=== PATIENT | male | born 1965 | race Caucasian/White ===

== ENCOUNTER 2017-12-27 18:11 | Emergency (ER) | payer MEDICARE, MEDICAID ==
[~2017-12-27] VITALS: Ht 180.3 cm; Wt 77.2 kg
[~2017-12-27 18:11] MED LIST: ASPI81TA PO; CLIN150C8 PO; CLOP75TA33 PO; FLUO40CA11 PO; FOLI-43 PO; FURO40TA4 PO; GUAI600T45 PO; IPRA3AMP IH; METO25TA6 PO; MORP60TA32 PO; MULT-785 PO; POTA8CAP9 PO; QUET25TA PO; REM15T PO; SIMV40TA4 PO; THI100T PO
[2017-12-27 19:52] LABS: HEMATOCRIT 35.9 % (42.0-52.0); HEMOGLOBIN 12.3 g/dl (14.0-17.9); MEAN CORPUSCULAR HEMOGLOBIN 32.5 PG (27.0-31.0); MEAN CORPUSCULAR HGB CONC 34.3 % (33.0-36.5); MEAN CORPUSCULAR VOLUME 94.9 FL (78-98); MEAN PLATELET VOLUME 7.3 FL (7.4-10.4); PLATELET COUNT 136 X10'3 (140-440); RED BLOOD COUNT 3.79 X10'6 (4.70-6.10); RED CELL DISTRIBUTION WIDTH 16.7 % (11.5-14.5)
[2017-12-27 20:03] LABS: ALANINE AMINOTRANSFERASE 76 U/L (12-78); ALBUMIN 4.2 G/DL (3.4-5.0); ALBUMIN/GLOBULIN RATIO 1.1 (1.1-1.5); ALKALINE PHOSPHATASE 125 IU/L (46-116); ANION GAP 9 (8-16); ASPARTATE AMINO TRANSFERASE 125 U/L (10-37); BILIRUBIN,TOTAL 0.3 MG/DL (0.1-1.0); BLOOD UREA NITROGEN 4 MG/DL (7-18); BUN/CREATININE RATIO 4.9 (5.4-32.0); CHLORIDE 102 MMOL/L (99-107); CREATININE 0.82 MG/DL (0.60-1.10); GLUCOSE 97 MG/DL (70-104); POTASSIUM 4.2 MMOL/L (3.5-5.1); SODIUM 140 MMOL/L (135-145); TOTAL CARBON DIOXIDE 29.5 MMOL/L (24-32); TOTAL PROTEIN 8.1 G/DL (6.4-8.2); eGFR > 90 ML/MIN
[2017-12-27 20:06] LABS: TOTAL CELLS COUNTED 100
[2017-12-27 20:07] LABS: PLATELET ESTIMATE DECREASED
[2017-12-27 20:51] VITALS: BP 114/71
== END 2017-12-27 20:54 | disposition home or self-care (01) ==
LOC: ER 18:11
DX: R60.0 Localized edema (principal); F12.90 Cannabis use, unspecified, uncomplicated; I25.10 Atherosclerotic heart disease of native coronary artery without angina pectoris; I25.2 Old myocardial infarction; E78.00 Pure hypercholesterolemia, unspecified; J44.9 Chronic obstructive pulmonary disease, unspecified; G89.29 Other chronic pain; Z88.0 Allergy status to penicillin; Z79.82 Long term (current) use of aspirin; Z79.899 Other long term (current) drug therapy; Z56.0 Unemployment, unspecified
CPT/HCPCS: 36415; 80053; 83880; 85025; 99283; 99284

== ENCOUNTER 2018-01-02 13:21 | Inpatient (IN) | payer MEDICARE, MEDICAID ==
[~2018-01-02] VITALS: Ht 180.3 cm; Wt 84.1 kg
[2018-01-02] MEDS ORDERED: ondansetron/PF 4mg/2ml inj IV ONE (13:40)
[2018-01-02] MEDS ORDERED: TETanus/Pertussis (Acell)/Diphther VAC/PF (Tdap-Adult) 0.5ml syringe IM ONE (13:40)
[2018-01-02] MEDS ORDERED: normal saline 1000ML IV soln IVB ONE (13:40)
[2018-01-02] MEDS: magnesium/D5W IVPB 100 ML IV SCH ×2 (13:40→14:40)
[2018-01-02] MEDS ORDERED: phenobarbital inj 260 MG in normal saline 100ml IV soln 99 ML IV STA ×2 (13:40→16:25)
[2018-01-02] MEDS ORDERED: thiamine inj. 100 MG in normal saline 100ml IV soln 99 ML IV ONE (13:40)
[2018-01-02] MEDS ORDERED: iohexol 300mg/ml 100ml inj. ONE (14:01)
[2018-01-02 14:05] LABS: BASOPHILS # (AUTO) 0.1 X10'3 (0-0.2); BASOPHILS % (AUTO) 0.5 % (0-1); EOSINOPHILS # (AUTO) 0.1 X10'3 (0-0.9); EOSINOPHILS % (AUTO) 0.5 % (0-6); HEMATOCRIT 34.9 % (42.0-52.0); LYMPHOCYTES # (AUTO) 1.5 X10'3 (1.1-4.8); LYMPHOCYTES % (AUTO) 11.5 % (21-51); MEAN CORPUSCULAR HEMOGLOBIN 32.3 PG (27.0-31.0); MEAN CORPUSCULAR HGB CONC 34.3 % (33.0-36.5); MEAN CORPUSCULAR VOLUME 94.1 FL (78-98); MEAN PLATELET VOLUME 9.4 FL (7.4-10.4); MONOCYTES # (AUTO) 1.3 X10'3 (0-0.9); MONOCYTES % (AUTO) 9.8 % (2-12); NEUTROPHILS % (AUTO) 77.7 % (42-75); PLATELET COUNT 122 X10'3 (140-440); RED BLOOD COUNT 3.71 X10'6 (4.70-6.10); WHITE BLOOD COUNT 12.9 X10'3 (4.5-11.0)
[2018-01-02 14:19] LABS: ALANINE AMINOTRANSFERASE 84 U/L (12-78); ALKALINE PHOSPHATASE 103 IU/L (46-116); ANION GAP 14 (8-16); ASPARTATE AMINO TRANSFERASE 217 U/L (10-37); BILIRUBIN,TOTAL 1.5 MG/DL (0.1-1.0); BLOOD UREA NITROGEN 33 MG/DL (7-18); BUN/CREATININE RATIO 21.2 (5.4-32.0); CALCIUM 9.6 MG/DL (8.5-10.1); CHLORIDE 92 MMOL/L (99-107); CREATININE 1.56 MG/DL (0.60-1.10); ETHANOL < 0.010 GM/DL (0.0-0.010); GLUCOSE 94 MG/DL (70-104); MAGNESIUM 1.7 MG/DL (1.5-2.4); SODIUM 135 MMOL/L (135-145); TOTAL CARBON DIOXIDE 29.1 MMOL/L (24-32); TOTAL PROTEIN 7.9 G/DL (6.4-8.2); eGFR 47 ML/MIN
[2018-01-02 14:25] LABS: POTASSIUM 2.3 MMOL/L (3.5-5.1)
[2018-01-02] MEDS ORDERED: potassium Cl 20 mEq SR tablet PO ONE (15:00)
[2018-01-02] MEDS ORDERED: FURO40TA4 PO (15:00)
[2018-01-02] MEDS ORDERED: IBUP-1985 PO (15:00)
[2018-01-02 15:15] LABS: CKMB RELATIVE INDEX 0.3 RATIO (0-2.5); CREATINE KINASE 5253 U/L (39-308)
[2018-01-02] MEDS ORDERED: thiamine 100mg/ml 2ml inj. IV ONE ×2 (15:20→16:20)
[2018-01-02] MEDS: potassium 10mEq/100ml NS w/LIDOcaine (10mg/bag) IV SCH ×2 (15:37→20:06)
[2018-01-02] MEDS ORDERED: diphenhydrAMINE 50 mg/ml inj IV PRN (16:20)
[2018-01-02] MEDS ORDERED: magnesium hydroxide 30ml (MOM) UD suspension PO PRN (16:20)
[2018-01-02] MEDS ORDERED: potassium Cl 40MEQ/NS 500ml 500 ML IV PRN ×2 (16:20)
[2018-01-02] MEDS ORDERED: magnesium Cl slow-release 64mg tablet PO PRN (16:20)
[2018-01-02] MEDS ORDERED: mag hydrox/Alum hydrox/simeth 30ml oral suspension PO PRN (16:20)
[2018-01-02] MEDS ORDERED: acetaminophen 325mg tablet PO PRN ×2 (16:20)
[2018-01-02] MEDS ORDERED: magnesium 4gm in 100ml NS 100 ML IV PRN (16:20)
[2018-01-02] MEDS ORDERED: HYDROcodone/acetaminophen 5mg/325mg tablet PO PRN (16:20)
[2018-01-02] MEDS ORDERED: dextrose 50%-water 50ml dispensing syringe IV PRN (16:20)
[2018-01-02] MEDS ORDERED: ondansetron/PF 4mg/2ml inj IV PRN (16:20)
[2018-01-02] MEDS ORDERED: acetaminophen 650mg rectal suppository RC PRN (16:20)
[2018-01-02] MEDS ORDERED: magnesium/D5W IVPB 50 ML IV PRN (16:20)
[2018-01-02] MEDS ORDERED: haloperidol lactate 5mg/ml inj IM PRN (16:20)
[2018-01-02] MEDS: K and/or MAG REPLACEMENT MC SCH (16:20)
[2018-01-02] MEDS ORDERED: LORazepam 2 mg/ml vial IV PRN (16:20)
[2018-01-02] MEDS ORDERED: morphine 4 MG/ML inj SYRINge IV PRN ×2 (16:20)
[2018-01-02 16:57] LABS: HEMOGLOBIN A1C 5.3 % (4.5-6.2)
[2018-01-02 17:19] LABS: CLARITY,URINE CLEAR (Clear); COLOR,URINE YELLOW (Yellow); GLUCOSE, URINE NEGATIVE (Neg); KETONES,URINE NEGATIVE (Neg); LEUKOCYTE ESTERASE ,URINE NEGATIVE (Neg); NITRITES, URINE NEGATIVE (Neg); OCCULT BLOOD,URINE MODERATE (Neg); PH,URINE 5.5 (4.8-8.0); PROTEIN,URINE NEGATIVE (Neg); UROBILINOGEN,URINE 0.2 E.U/dL (0.2-1.0)
[2018-01-02 17:35] LABS: UA COLLECTION TYPE URINAL
[2018-01-02 17:36] LABS: BACTERIA,URINE NONE SEEN /HPF (Neg); HYALINE CASTS 0-3 /LPF (NEGATIVE); MUCUS STRANDS FEW /LPF (Neg); RBC,URINE 0-2 /HPF (0-2); SQUAMOUS EPITHELIAL CELL,UR FEW /LPF (FEW); WBC,URINE 0-4 /HPF (0-4)
[2018-01-02 18:00] VITALS: BP 112/70
[2018-01-02 18:11] LABS: HIV ANTIBODY 1&2 RAPID NON-REACTIVE (Neg)
[2018-01-02 18:21] LABS: URINE AMPHETAMINE SCREEN NEGATIVE (Neg); URINE BARBITUATE SCREEN POSITIVE (Neg); URINE BENZODIAZEPINES SCREEN NEGATIVE (Neg); URINE CANNABINOID SCREEN POSITIVE (Neg); URINE COCAINE SCREEN NEGATIVE (Neg); URINE METHADONE SCREEN NEGATIVE (Neg); URINE OPIATE SCREEN NEGATIVE (Neg); URINE PHENCYCLIDINE SCREEN NEGATIVE (Neg)
[2018-01-02] MEDS ORDERED: potassium 10mEq/100ml NS w/LIDOcaine (10mg/bag) IV SCH (19:10)
[2018-01-02] MEDS: dextrose 5%-lactated ringers 1,000 ML IV SCH (20:06)
[2018-01-02] MEDS: mirtazapine 15mg tablet PO SCH (20:42)
[2018-01-02] MEDS: metoprolol tartrate 25mg tablet PO SCH (20:42)
[2018-01-02] MEDS: LORazepam 2 mg/ml vial IV PRN (21:52)
[2018-01-02 22:00] VITALS: BP 98/66
[2018-01-03] MEDS: dextrose 5%-lactated ringers 1,000 ML IV SCH ×3 (02:47→13:00)
[2018-01-03 03:08] VITALS: BP 108/72
[2018-01-03] MEDS: LORazepam 2 mg/ml vial IV PRN ×2 (03:08→05:39)
[2018-01-03 06:00] VITALS: BP 110/72
[2018-01-03 06:55] LABS: CKMB RELATIVE INDEX 0.2 RATIO (0-2.5)
[2018-01-03] MEDS: K and/or MAG REPLACEMENT MC SCH (08:00)
[2018-01-03 09:09] LABS: INR 0.9 INR; PARTIAL THROMBOPLASTIN TIME 24 SECONDS (22-32); PROTHROMBIN TIME 9.8 SECONDS (9.0-12.0)
[2018-01-03 09:13] LABS: ALANINE AMINOTRANSFERASE 78 U/L (12-78); ALBUMIN 3.2 G/DL (3.4-5.0); ALBUMIN/GLOBULIN RATIO 0.9 (1.1-1.5); ALKALINE PHOSPHATASE 84 IU/L (46-116); ANION GAP 8 (8-16); ASPARTATE AMINO TRANSFERASE 188 U/L (10-37); BILIRUBIN,TOTAL 1.1 MG/DL (0.1-1.0); BLOOD UREA NITROGEN 17 MG/DL (7-18); CALCIUM 8.5 MG/DL (8.5-10.1); CHLORIDE 102 MMOL/L (99-107); CREATININE 0.85 MG/DL (0.60-1.10); GLUCOSE 96 MG/DL (70-104); SODIUM 140 MMOL/L (135-145); TOTAL CARBON DIOXIDE 29.7 MMOL/L (24-32); TOTAL PROTEIN 6.6 G/DL (6.4-8.2); eGFR > 90 ML/MIN
[2018-01-03 09:20] LABS: POTASSIUM 2.8 MMOL/L (3.5-5.1)
[2018-01-03] MEDS: potassium Cl 20 mEq SR tablet PO PRN ×3 (09:26→20:25)
[2018-01-03] MEDS: metoprolol tartrate 25mg tablet PO SCH ×2 (09:26→20:02)
[2018-01-03] MEDS: folic acid inj. 2 MG, thiamine inj. 100 MG, MVI, adult No.4 with vit. K 10 ML in dextro... IV SCH ×4 (09:27)
[2018-01-03 09:35] LABS: BASOPHILS % (AUTO) 0.1 % (0-1); EOSINOPHILS # (AUTO) 0.2 X10'3 (0-0.9); EOSINOPHILS % (AUTO) 2.5 % (0-6); HEMATOCRIT 31.4 % (42.0-52.0); HEMOGLOBIN 10.7 g/dl (14.0-17.9); LYMPHOCYTES # (AUTO) 1.2 X10'3 (1.1-4.8); LYMPHOCYTES % (AUTO) 14.2 % (21-51); MEAN CORPUSCULAR HEMOGLOBIN 32.4 PG (27.0-31.0); MEAN CORPUSCULAR HGB CONC 34.2 % (33.0-36.5); MEAN CORPUSCULAR VOLUME 94.6 FL (78-98); MEAN PLATELET VOLUME 8.9 FL (7.4-10.4); MONOCYTES # (AUTO) 0.9 X10'3 (0-0.9); MONOCYTES % (AUTO) 10.2 % (2-12); NEUTROPHILS # (AUTO) 6.1 X10'3 (1.8-7.7); PLATELET COUNT 129 X10'3 (140-440); RED BLOOD COUNT 3.31 X10'6 (4.70-6.10); RED CELL DISTRIBUTION WIDTH 16.2 % (11.5-14.5); WHITE BLOOD COUNT 8.4 X10'3 (4.5-11.0)
[2018-01-03 10:00] VITALS: BP 116/66
[2018-01-03] MEDS: enoxaparin 40mg/0.4ml syringe SUBCUT SCH (11:27)
[2018-01-03 18:00] VITALS: BP 101/69
[2018-01-03] MEDS: mirtazapine 15mg tablet PO SCH (20:02)
[2018-01-03] MEDS: potassium 20mEq/D5LR 1,000 ML IV SCH (20:15)
[2018-01-03 22:00] VITALS: BP 107/75
[2018-01-04] MEDS: HYDROcodone/acetaminophen 10/325mg tab PO PRN ×2 (00:37→18:28)
[2018-01-04] MEDS: potassium 20mEq/D5LR 1,000 ML IV SCH ×4 (03:15→22:10)
[2018-01-04 06:00] VITALS: BP 114/83
[2018-01-04 06:30] LABS: BASOPHILS % (AUTO) 0.6 % (0-1); EOSINOPHILS # (AUTO) 0.2 X10'3 (0-0.9); EOSINOPHILS % (AUTO) 3.3 % (0-6); HEMATOCRIT 26.9 % (42.0-52.0); HEMOGLOBIN 9.2 g/dl (14.0-17.9); LYMPHOCYTES # (AUTO) 1.5 X10'3 (1.1-4.8); LYMPHOCYTES % (AUTO) 24.8 % (21-51); MEAN CORPUSCULAR HEMOGLOBIN 31.9 PG (27.0-31.0); MEAN CORPUSCULAR HGB CONC 34.2 % (33.0-36.5); MEAN CORPUSCULAR VOLUME 93.4 FL (78-98); MONOCYTES % (AUTO) 16.9 % (2-12); NEUTROPHILS # (AUTO) 3.3 X10'3 (1.8-7.7); NEUTROPHILS % (AUTO) 54.4 % (42-75); PLATELET COUNT 148 X10'3 (140-440); RED BLOOD COUNT 2.88 X10'6 (4.70-6.10); RED CELL DISTRIBUTION WIDTH 16.3 % (11.5-14.5)
[2018-01-04 06:58] LABS: CHLORIDE 104 MMOL/L (99-107); GLUCOSE 96 MG/DL (70-104); POTASSIUM 3.3 MMOL/L (3.5-5.1); SODIUM 138 MMOL/L (135-145); TOTAL CARBON DIOXIDE 27.1 MMOL/L (24-32)
[2018-01-04 06:59] LABS: ALANINE AMINOTRANSFERASE 76 U/L (12-78); ALBUMIN 2.9 G/DL (3.4-5.0); ALKALINE PHOSPHATASE 76 IU/L (46-116); ANION GAP 7 (8-16); ASPARTATE AMINO TRANSFERASE 157 U/L (10-37); BILIRUBIN,TOTAL 0.7 MG/DL (0.1-1.0); BLOOD UREA NITROGEN 7 MG/DL (7-18); BUN/CREATININE RATIO 10.6 (5.4-32.0); CALCIUM 8.4 MG/DL (8.5-10.1); CREATININE 0.66 MG/DL (0.60-1.10); TOTAL PROTEIN 5.9 G/DL (6.4-8.2); eGFR > 90 ML/MIN
[2018-01-04 07:00] LABS: CREATINE KINASE 1990 U/L (39-308)
[2018-01-04] MEDS: K and/or MAG REPLACEMENT MC SCH (08:00)
[2018-01-04] MEDS: metoprolol tartrate 25mg tablet PO SCH ×2 (08:42→20:05)
[2018-01-04] MEDS: enoxaparin 40mg/0.4ml syringe SUBCUT SCH (08:43)
[2018-01-04] MEDS: potassium Cl 20 mEq SR tablet PO PRN ×2 (08:45→18:28)
[2018-01-04] MEDS: folic acid inj. 2 MG, thiamine inj. 100 MG, MVI, adult No.4 with vit. K 10 ML in dextro... IV SCH ×4 (08:47)
[2018-01-04 10:00] VITALS: BP 131/84
[2018-01-04 12:07] LABS: OCCULT BLOOD STOOL NEGATIVE (Neg)
[2018-01-04 13:23] LABS: HBSAG SCREEN Negative (Negative); HEP A AB, IGM Negative (Negative); HEP B CORE AB, IGM Negative (Negative); HEPATITIS C ANTIBODY <0.1 s/co ratio (0.0-0.9)
[2018-01-04 18:00] VITALS: BP 123/89
[2018-01-04] MEDS: mirtazapine 15mg tablet PO SCH (20:05)
[2018-01-04 22:00] VITALS: BP 108/76
[2018-01-05] MEDS: potassium Cl 20 mEq SR tablet PO PRN (00:38)
[2018-01-05 05:51] LABS: BASOPHILS # (AUTO) 0.1 X10'3 (0-0.2); EOSINOPHILS # (AUTO) 0.2 X10'3 (0-0.9); EOSINOPHILS % (AUTO) 2.9 % (0-6); HEMOGLOBIN 9.6 g/dl (14.0-17.9); LYMPHOCYTES # (AUTO) 1.7 X10'3 (1.1-4.8); LYMPHOCYTES % (AUTO) 22.4 % (21-51); MEAN CORPUSCULAR HEMOGLOBIN 32.5 PG (27.0-31.0); MEAN CORPUSCULAR HGB CONC 34.3 % (33.0-36.5); MEAN CORPUSCULAR VOLUME 94.7 FL (78-98); MEAN PLATELET VOLUME 8.4 FL (7.4-10.4); MONOCYTES # (AUTO) 1.3 X10'3 (0-0.9); MONOCYTES % (AUTO) 18.1 % (2-12); NEUTROPHILS # (AUTO) 4.1 X10'3 (1.8-7.7); NEUTROPHILS % (AUTO) 55.6 % (42-75); PLATELET COUNT 206 X10'3 (140-440); RED BLOOD COUNT 2.96 X10'6 (4.70-6.10); RED CELL DISTRIBUTION WIDTH 15.9 % (11.5-14.5); WHITE BLOOD COUNT 7.4 X10'3 (4.5-11.0)
[2018-01-05 06:00] VITALS: BP 123/85
[2018-01-05 06:21] LABS: ALANINE AMINOTRANSFERASE 85 U/L (12-78); ALBUMIN/GLOBULIN RATIO 0.9 (1.1-1.5); ALKALINE PHOSPHATASE 80 IU/L (46-116); ANION GAP 7 (8-16); ASPARTATE AMINO TRANSFERASE 129 U/L (10-37); BILIRUBIN,TOTAL 0.5 MG/DL (0.1-1.0); BLOOD UREA NITROGEN 6 MG/DL (7-18); BUN/CREATININE RATIO 7.3 (5.4-32.0); CALCIUM 9.2 MG/DL (8.5-10.1); CHLORIDE 105 MMOL/L (99-107); CREATINE KINASE 1279 U/L (39-308); CREATININE 0.82 MG/DL (0.60-1.10); GLUCOSE 108 MG/DL (70-104); POTASSIUM 3.9 MMOL/L (3.5-5.1); SODIUM 138 MMOL/L (135-145); TOTAL CARBON DIOXIDE 25.9 MMOL/L (24-32); TOTAL PROTEIN 6.2 G/DL (6.4-8.2); eGFR > 90 ML/MIN
[2018-01-05] MEDS: potassium 20mEq/D5LR 1,000 ML IV SCH ×3 (07:09→15:45)
[2018-01-05] MEDS: K and/or MAG REPLACEMENT MC SCH (08:00)
[2018-01-05] MEDS: folic acid inj. 2 MG, thiamine inj. 100 MG, MVI, adult No.4 with vit. K 10 ML in dextro... IV SCH ×4 (08:07)
[2018-01-05] MEDS: enoxaparin 40mg/0.4ml syringe SUBCUT SCH (08:08)
[2018-01-05] MEDS: metoprolol tartrate 25mg tablet PO SCH (08:08)
[2018-01-05] MEDS: HYDROcodone/acetaminophen 10/325mg tab PO PRN (08:11)
[2018-01-05 10:00] VITALS: BP 97/67
[2018-01-05] MEDS ORDERED: THI100T PO (12:04)
[2018-01-05 12:07] VITALS: BP 127/92
== END 2018-01-05 16:15 | disposition home or self-care (01) | DRG 896 ==
LOC: ER 13:22 → ED HOLD 16:16 → UNDODISIN 17:00 → EDBEDREQ 17:09 → ORTHO 4S 18:00
PROVIDERS: ADMIT Family Medicine; ATTEND Internal Medicine
PROC: BW251ZZ Computerized Tomography (CT Scan) of Chest, Abdomen and Pelvis using Low Osmolar Contrast (ICD-10-PCS; principal; 2018-01-02)
PROC: 0JQ13ZZ Repair Face Subcutaneous Tissue and Fascia, Percutaneous Approach (ICD-10-PCS; 2018-01-02)
PROC: 0JQ03ZZ Repair Scalp Subcutaneous Tissue and Fascia, Percutaneous Approach (ICD-10-PCS; 2018-01-02)
DX: F10.239 Alcohol dependence with withdrawal, unspecified (principal); G93.41 Metabolic encephalopathy; E43 Unspecified severe protein-calorie malnutrition; N17.9 Acute kidney failure, unspecified; S22.42XA Multiple fractures of ribs, left side, initial encounter for closed fracture; M62.82 Rhabdomyolysis; S06.0X0A Concussion without loss of consciousness, initial encounter; D69.6 Thrombocytopenia, unspecified; E87.6 Hypokalemia; S01.112A Laceration without foreign body of left eyelid and periocular area, initial encounter; S01.81XA Laceration without foreign body of other part of head, initial encounter; K70.10 Alcoholic hepatitis without ascites; D64.9 Anemia, unspecified; E78.00 Pure hypercholesterolemia, unspecified; E78.5 Hyperlipidemia, unspecified; E86.0 Dehydration; F31.9 Bipolar disorder, unspecified; I45.81 Long QT syndrome; I10 Essential (primary) hypertension; I25.10 Atherosclerotic heart disease of native coronary artery without angina pectoris; J44.9 Chronic obstructive pulmonary disease, unspecified; K74.60 Unspecified cirrhosis of liver; R29.6 Repeated falls; R62.7 Adult failure to thrive; F12.10 Cannabis abuse, uncomplicated; W17.89XA Other fall from one level to another, initial encounter; G89.29 Other chronic pain; M54.9 Dorsalgia, unspecified; Z56.0 Unemployment, unspecified; I25.2 Old myocardial infarction; Z95.1 Presence of aortocoronary bypass graft; Z88.0 Allergy status to penicillin; Z79.899 Other long term (current) drug therapy; Z82.49 Family history of ischemic heart disease and other diseases of the circulatory system; Z82.3 Family history of stroke; Y93.89 Activity, other specified; Y92.89 Other specified places as the place of occurrence of the external cause; Y99.8 Other external cause status; Z68.25 Body mass index [BMI] 25.0-25.9, adult
CPT/HCPCS: 12001; 12013; 36415; 70450; 71260; 74177; 80053; 80305; 80320; 81001; 82140; 82272; 82550; 82553; 82607; 82728; 82746; 82948; 83036; 83540; 83550; 83605; 83735; 84443; 84484; 85025; 85610; 85730; 86703; 86705; 86706; 86709; 86803; 87040; 87070; 87340; 90471; 90715; 96365; 96375; 97116; 97161; 99285; A6212; A6213; A6257; J1630; J1650; J2060; J2405; J2560; J3411; J3480; J3490; J7030; J7060; J7120; Q9967

== ENCOUNTER 2019-12-02 13:38 | Emergency (ER) | payer OTHER, MEDICAID ==
[~2019-12-02] VITALS: Ht 180.3 cm; Wt 74.5 kg
[~2019-12-02 13:38] MED LIST changes: -CLIN150C8 PO; -CLOP75TA33 PO; -FLUO40CA11 PO; -FOLI-43 PO; -FURO40TA4 PO; +GABA-532 PO; -GUAI600T45 PO; -IPRA3AMP IH; -METO25TA6 PO; -MORP60TA32 PO; -MULT-785 PO; -POTA8CAP9 PO; -QUET25TA PO; -REM15T PO; -SIMV40TA4 PO; -THI100T PO
[2019-12-02 14:15] LABS: BASOPHILS % (AUTO) 0.5 % (0-1); EOSINOPHILS % (AUTO) 0.6 % (0-6); HEMATOCRIT 23.4 % (42.0-52.0); LYMPHOCYTES % (AUTO) 11.7 % (21-51); MEAN CORPUSCULAR HEMOGLOBIN 32.9 PG (27.0-31.0); MEAN CORPUSCULAR HGB CONC 34.1 g/dL (33.0-36.5); MEAN CORPUSCULAR VOLUME 96.4 FL (78-98); MEAN PLATELET VOLUME 8.1 FL (7.4-10.4); MONOCYTES # (AUTO) 0.9 X10'3 (0-0.9); MONOCYTES % (AUTO) 10.2 % (2-12); NEUTROPHILS # (AUTO) 6.5 X10'3 (1.8-7.7); PLATELET COUNT 184 X10'3 (140-440); RED BLOOD COUNT 2.42 X10'6 (4.70-6.10); RED CELL DISTRIBUTION WIDTH 16.2 % (11.5-14.5); WHITE BLOOD COUNT 8.5 X10'3 (4.5-11.0)
[2019-12-02 14:25] LABS: ALANINE AMINOTRANSFERASE 37 U/L (12-78); ALBUMIN 3.7 G/DL (3.4-5.0); ALBUMIN/GLOBULIN RATIO 1.1 (1.1-1.5); ALKALINE PHOSPHATASE 76 IU/L (46-116); ANION GAP 14 (8-16); ASPARTATE AMINO TRANSFERASE 65 U/L (10-37); BILIRUBIN,TOTAL 0.6 MG/DL (0.1-1.0); BLOOD UREA NITROGEN 22 MG/DL (7-18); BUN/CREATININE RATIO 23.9 (5.4-32.0); CHLORIDE 100 MMOL/L (99-107); CREATININE 0.92 MG/DL (0.60-1.10); GLUCOSE 111 MG/DL (70-104); POTASSIUM 3.1 MMOL/L (3.5-5.1); SODIUM 136 MMOL/L (135-145); TOTAL CARBON DIOXIDE 21.7 MMOL/L (24-32); TOTAL PROTEIN 7.2 G/DL (6.4-8.2); eGFR 86 ML/MIN
[2019-12-02] MEDS ORDERED: normal saline 1000ML IV soln IVB ONE (15:15)
[2019-12-02 15:34] LABS: CLARITY,URINE SLIGHTLY CLOUDY (Clear); COLOR,URINE YELLOW (Yellow); GLUCOSE, URINE NEGATIVE (Neg); KETONES,URINE TRACE mg/dl (Neg); LEUKOCYTE ESTERASE ,URINE NEGATIVE (Neg); NITRITES, URINE NEGATIVE (Neg); OCCULT BLOOD,URINE NEGATIVE (Neg); PH,URINE 5.5 (4.8-8.0); PROTEIN,URINE 30 mg/dl (Neg); UROBILINOGEN,URINE 0.2 E.U/dL (0.2-1.0)
[2019-12-02 15:36] LABS: UA COLLECTION TYPE CLN CATCH MIDSTREAM
[2019-12-02 15:41] LABS: BACTERIA,URINE NONE SEEN /HPF (Neg); MUCUS STRANDS NONE SEEN /LPF (Neg); RBC,URINE 0-2 /HPF (0-2); SQUAMOUS EPITHELIAL CELL,UR FEW /LPF (FEW); URINE AMPHETAMINE SCREEN NEGATIVE (Neg); URINE BARBITUATE SCREEN NEGATIVE (Neg); URINE BENZODIAZEPINES SCREEN NEGATIVE (Neg); URINE CANNABINOID SCREEN POSITIVE (Neg); URINE COCAINE SCREEN NEGATIVE (Neg); URINE METHADONE SCREEN NEGATIVE (Neg); URINE OPIATE SCREEN NEGATIVE (Neg); URINE PHENCYCLIDINE SCREEN NEGATIVE (Neg); WBC,URINE 0-4 /HPF (0-4)
[2019-12-02 15:52] LABS: ETHANOL 0.012 GM/DL (0.0-0.010)
[2019-12-02] MEDS ORDERED: LORazepam 0.5 MG tablet PO PRN (16:35)
[2019-12-02] MEDS ORDERED: potassium Cl 20 mEq SR tablet PO ONE (16:35)
[2019-12-02 17:33] VITALS: BP 15/75
== END 2019-12-02 17:42 | disposition home or self-care (01) ==
LOC: ER 13:39
DX: R56.9 Unspecified convulsions (principal); R11.10 Vomiting, unspecified; R19.7 Diarrhea, unspecified; I25.10 Atherosclerotic heart disease of native coronary artery without angina pectoris; E78.00 Pure hypercholesterolemia, unspecified; I10 Essential (primary) hypertension; I25.2 Old myocardial infarction; J44.9 Chronic obstructive pulmonary disease, unspecified; G89.29 Other chronic pain; F31.9 Bipolar disorder, unspecified; F12.90 Cannabis use, unspecified, uncomplicated; Z98.890 Other specified postprocedural states; Z72.89 Other problems related to lifestyle; Z56.0 Unemployment, unspecified; Z88.0 Allergy status to penicillin; Z79.82 Long term (current) use of aspirin; Z79.899 Other long term (current) drug therapy
CPT/HCPCS: 36415; 70450; 80053; 80305; 80320; 81001; 85025; 93005; 96360; 96361; 99285; J7030